=== PATIENT | female | born 1975 | race Caucasian/White ===

== ENCOUNTER 2020-07-28 17:27 | Emergency (ER) | payer BC, OTHER ==
[~2020-07-28] VITALS: Ht 167.6 cm; Wt 90.9 kg
--- NOTE | 2020-07-28 17:56 | NUR ---
Lab and XR at bedside. Pt sitting up in bed, breathing equal, non-labored.
[2020-07-28 18:24] LABS: ALBUMIN 3.2 g/dL (3.4-5.0); ANION GAP 8 mmol/L (5-15); CALCIUM 8.4 mg/dL (8.5-10.1); CHLORIDE 103 mmol/L (98-107); CREATININE 0.71 mg/dL (0.55-1.02)
[2020-07-28 18:27] LABS: TROPONIN I < 0.015 ng/mL (0.000-0.045)
[2020-07-28 18:36] LABS: BASOPHILS % (AUTO) 2 % (0-1); EOSINOPHILS % (AUTO) 3 % (1-7); LYMPHOCYTES % (AUTO) 38 % (22-44); MEAN CORPUSCULAR HEMOGLOBIN 32.6 pg (27.0-34.8); MEAN CORPUSCULAR HGB CONC 35.8 g/dL (32.4-35.8); MONOCYTES % (AUTO) 5 % (2-9); NEUTROPHILS % (AUTO) 52 % (42-75); PLATELET COUNT 260 x10^3/uL (130-400); RED BLOOD COUNT 4.97 x10^6/uL (3.82-5.3); RED CELL DISTRIBUTION WIDTH 12.9 % (9.6-15.2)
[2020-07-28 18:38] LABS: MD NO
--- NOTE | 2020-07-28 18:38 | NUR ---
Provider at bedside.
[2020-07-28 19:03] VITALS: BP 118/76
--- NOTE | 2020-07-28 19:05 | NUR ---
RN at bedside, pt denies chest pain currently.
--- NOTE | 2020-07-28 19:19 | NUR ---
Pt agrees with and understands discharge plan and instructions
== END 2020-07-28 19:28 | disposition home or self-care (01) ==
LOC: ED 18:28
DX: R07.89 Other chest pain (principal); F41.9 Anxiety disorder, unspecified; M54.6 Pain in thoracic spine; R94.31 Abnormal electrocardiogram [ECG] [EKG]
CPT/HCPCS: 36415; 71045; 80048; 82040; 84484; 85025; 93005; 99285